=== PATIENT | female | born 2000 | race African-American/Black ===

== ENCOUNTER 2023-03-13 14:57 | Emergency (ER) | payer MEDICAID ==
[~2023-03-13] VITALS: Ht 162.6 cm; Wt 68.2 kg
[2023-03-13 17:00] VITALS: BP 116/64
== END 2023-03-13 17:15 | disposition home or self-care (01) ==
LOC: EMS 15:04
DX: R21 Rash and other nonspecific skin eruption (principal)
CPT/HCPCS: 99281; Z7502